=== PATIENT | female | born 1945 | race Caucasian/White ===

== ENCOUNTER 2019-03-26 22:03 | Emergency (ER) | payer MEDICARE ==
[~2019-03-26] VITALS: Ht 162.6 cm; Wt 51.4 kg
[2019-03-26 22:46] LABS: CLARITY,URINE CLEAR (Clear); COLOR,URINE YELLOW (Yellow); GLUCOSE, URINE NEGATIVE (Neg); KETONES,URINE NEGATIVE (Neg); LEUKOCYTE ESTERASE ,URINE NEGATIVE (Neg); NITRITES, URINE NEGATIVE (Neg); OCCULT BLOOD,URINE NEGATIVE (Neg); PROTEIN,URINE NEGATIVE (Neg); UROBILINOGEN,URINE 0.2 E.U/dL (0.2-1.0)
[2019-03-26 22:49] LABS: BASOPHILS % (AUTO) 0.5 % (0-1); EOSINOPHILS % (AUTO) 0.7 % (0-6); HEMATOCRIT 40.6 % (35.0-45.0); HEMOGLOBIN 13.5 g/dl (12.0-16.0); LYMPHOCYTES # (AUTO) 1.2 X10'3 (1.1-4.8); LYMPHOCYTES % (AUTO) 20.1 % (21-51); MEAN CORPUSCULAR HGB CONC 33.4 g/dL (33.0-36.5); MEAN CORPUSCULAR VOLUME 92.9 FL (78-98); MEAN PLATELET VOLUME 8.2 FL (7.4-10.4); MONOCYTES # (AUTO) 0.4 X10'3 (0-0.9); NEUTROPHILS # (AUTO) 4.3 X10'3 (1.8-7.7); NEUTROPHILS % (AUTO) 71.7 % (42-75); PLATELET COUNT 209 X10'3 (140-440); RED BLOOD COUNT 4.37 X10'6 (4.20-5.60); RED CELL DISTRIBUTION WIDTH 12.9 % (11.5-14.5)
[2019-03-26 22:50] LABS: UA COLLECTION TYPE CLN CATCH MIDSTREAM
[2019-03-26 23:02] LABS: ALANINE AMINOTRANSFERASE 27 U/L (12-78); ALBUMIN 4.4 G/DL (3.4-5.0); ALBUMIN/GLOBULIN RATIO 1.2 (1.1-1.5); ALKALINE PHOSPHATASE 58 IU/L (46-116); AMYLASE 48 U/L (25-115); ANION GAP 9 (8-16); ASPARTATE AMINO TRANSFERASE 18 U/L (10-37); BILIRUBIN,TOTAL 0.6 MG/DL (0.1-1.0); BLOOD UREA NITROGEN 40 MG/DL (7-18); BUN/CREATININE RATIO 20.2 (6.6-38.0); CALCIUM 9.1 MG/DL (8.5-10.1); CHLORIDE 102 MMOL/L (99-107); CREATININE 1.98 MG/DL (0.40-0.90); GLUCOSE 123 MG/DL (70-104); LIPASE 60 U/L (73-393); POTASSIUM 4.9 MMOL/L (3.5-5.1); SODIUM 139 MMOL/L (135-145); TOTAL CARBON DIOXIDE 27.7 MMOL/L (24-32); eGFR 25 ML/MIN
[2019-03-26] MEDS ORDERED: ondansetron/PF 4mg/2ml inj IV ONE (23:50)
[2019-03-26] MEDS ORDERED: methylnaltrexone br 12mg/0.6ml inj***SubQ only SQ ONE (23:50)
[2019-03-26] MEDS ORDERED: normal saline 1000ML IV soln IVB ONE ×2 (23:50)
--- NOTE | 2019-03-27 00:53 | NUR ---
PT AMBULATED TO BATHROOM-STATES SHE HAD "MASSIVE" BM. "I LOST ABOUT 4 POUNDS" [OF STOOL]. PT TUCKED COMFORTABLY INTO BED AND HOOKED BACK UP TO VSS AND IV.
[2019-03-27] MEDS ORDERED: magnesium hydroxide 30ml (MOM) UD suspension PO ONE (01:35)
[2019-03-27] MEDS ORDERED: lactulose 20gm/30ml cup PO ONE (01:35)
[2019-03-27] MEDS ORDERED: HYDROcodone/acetaminophen 10/325mg tab PO ONE (01:35)
[2019-03-27] MEDS ORDERED: mag hydrox/Alum hydrox/simeth 30ml oral suspension PO ONE (01:50)
[2019-03-27] MEDS ORDERED: metoclopramide 5 mg/ml inj IV ONE (02:10)
[2019-03-27] MEDS ORDERED: morphine 4 MG/ML inj SYRINge IV ONE (02:10)
[2019-03-27] MEDS ORDERED: diphenhydrAMINE 50 mg/ml inj IV ONE (02:10)
[2019-03-27] MEDS ORDERED: ondansetron/PF 4mg/2ml inj IV ONE (02:10)
[2019-03-27] MEDS ORDERED: normal saline 1000ML IV soln IVB ONE (02:10)
--- NOTE | 2019-03-27 02:10 | NUR ---
WHEN PREPARING TO DC PT, PT PROJECTILE VOMITED AND SOILED SELF. GAVE PT NEW GOWN AND SUPPLIES TO CLEAN SELF. MD INFORMED AND DC STOPPED FOR FURTHER EVALUATION. NEW MEDICATION ORDERS RECEIVED-OHLFS STATED TO CANCEL NORCO, ZOFRAN AND MAG-AL ADMINISTRATION. MEDICATIONS CANCELLED ORDERED.
[2019-03-27 03:10] VITALS: BP 145/67
[2019-03-27] MEDS ORDERED: ONDA4TAB12 PO (03:25)
== END 2019-03-27 03:35 | disposition home or self-care (01) ==
LOC: ER 22:06
DX: K59.00 Constipation, unspecified (principal); E86.0 Dehydration; Z88.8 Allergy status to other drugs, medicaments and biological substances; Z79.899 Other long term (current) drug therapy
CPT/HCPCS: 36415; 74176; 80053; 81003; 82150; 83690; 85025; 85610; 93005; 96361; 96372; 96374; 96375; 99284; J1200; J2212; J2270; J2405; J2765; J7030